=== PATIENT | female | born 1945 | race Caucasian/White ===

== ENCOUNTER → 2016-12-19 | Outpatient (CLI) | payer MEDICARE, OTHER ==
[~2016-12-19] MED LIST: ATIVAN 0.50.5 MG/TAB PO; CHILDREN'S ASPI81 M1 PO; GOOD SENSE ASPI81 M1 PO
== END ==
LOC: RAD 10:02
DX: Z13.820 Encounter for screening for osteoporosis (principal)

== ENCOUNTER 2017-09-15 14:56 | Emergency (ER) | payer MEDICARE, OTHER ==
[2017-09-15] MEDS ORDERED: MAGNESIUM100 M1 PO (15:16)
[2017-09-15] MEDS ORDERED: MULTI-VITAMIN1 EACH PO (15:16)
[2017-09-15 16:09] LABS: BASO # 0.1 (0.02-0.10); EOS # 0.2 (0.04-0.40); EOS % 2.6 % (1.0-5.0); HEMATOCRIT 41.8 % (37.0-47.0); HEMOGLOBIN 13.6 g/dL (12.5-16.0); LYMPH# 1.6 (1.50-4.00); MEAN CELL VOLUME 88 fl (78-100); MEAN CORPUSCULAR HEMOGLOBIN 29 pg (27-31); MEAN CORPUSCULAR HGB CONC 33 g/dL (33-37); MEAN PLATELET VOLUME 10.7 fl (7.4-10.4); MONO # 0.5 (0.20-0.80); NEU # 5.6 (1.40-6.50); PLATELET COUNT 236 K/mm3 (130-400); RED BLOOD COUNT 4.75 M/mm3 (4.10-5.30); RED CELL DISTRIBUTION WIDTH 13.9 % (11.5-14.5); WHITE BLOOD COUNT 8.1 K/mm3 (4.8-10.8)
[2017-09-15 16:15] LABS: ALBUMIN 3.9 g/dL (3.5-5.0); BUN/CREATININE RATIO 24.8 (6.0-26.0); POTASSIUM 3.7 mmol/L (3.6-5.0); TOTAL BILIRUBIN 0.6 mg/dL (0.2-1.3); TOTAL PROTEIN 7.3 g/dL (6.3-8.2)
[2017-09-15] MEDS ORDERED: METOPROLOL SUCC50 M1 PO (16:42)
[2017-09-15 17:05] VITALS: BP 157/79
== END 2017-09-15 16:35 | disposition home or self-care (01) ==
LOC: ED 14:56
PROVIDERS: Family Medicine
DX: I49.3 Ventricular premature depolarization (principal); I10 Essential (primary) hypertension; R00.2 Palpitations; R42 Dizziness and giddiness

== ENCOUNTER → 2019-06-18 | Outpatient (CLI) | payer MEDICARE, OTHER ==
[~2019-06-18] MED LIST changes: +MAGNESIUM100 M1 PO; +METOPROLOL SUCC50 M1 PO; +MULTI-VITAMIN1 EACH PO
== END ==
LOC: RAD 16:44
DX: M47.816 Spondylosis without myelopathy or radiculopathy, lumbar region (principal); M50.820 Other cervical disc disorders, mid-cervical region, unspecified level; M62.830 Muscle spasm of back

== ENCOUNTER 2020-09-11 10:11 | Emergency (ER) | payer MEDICARE, OTHER ==
[~2020-09-11] VITALS: Ht 167.6 cm; Wt 88.6 kg
[2020-09-11 11:10] LABS: EOS # 0.1 (0.04-0.40); EOS % 1.5 % (1.0-5.0); HEMATOCRIT 42.3 % (37.0-47.0); HEMOGLOBIN 13.5 g/dL (12.5-16.0); LYMPH# 1.3 (1.50-4.00); MEAN CELL VOLUME 87 fl (78-100); MEAN CORPUSCULAR HEMOGLOBIN 28 pg (27-31); MEAN CORPUSCULAR HGB CONC 32 g/dL (33-37); MEAN PLATELET VOLUME 10.2 fl (7.4-10.4); MONO # 0.4 (0.20-0.80); NEU # 4.9 (1.40-6.50); PLATELET COUNT 232 K/mm3 (130-400); RED BLOOD COUNT 4.88 M/mm3 (4.10-5.30); WHITE BLOOD COUNT 6.8 K/mm3 (4.8-10.8)
[2020-09-11 11:21] LABS: ALBUMIN 3.8 g/dL (3.4-4.8); POTASSIUM 4.1 mmol/L (3.5-5.1)
[2020-09-11 11:22] LABS: CALCIUM 9.1 mg/dL (8.3-10.5)
[2020-09-11 11:24] LABS: TOTAL PROTEIN 6.3 g/dL (6.2-8.1)
[2020-09-11 11:25] LABS: TOTAL BILIRUBIN 0.6 mg/dL (0.2-1.2)
[2020-09-11] MEDS ORDERED: MECLIZINE PO (13:28)
[2020-09-11 13:50] VITALS: BP 153/80
== END 2020-09-11 13:50 | disposition home or self-care (01) ==
LOC: ED 10:11
PROVIDERS: Family Medicine
DX: H81.10 Benign paroxysmal vertigo, unspecified ear (principal); I10 Essential (primary) hypertension; Z90.710 Acquired absence of both cervix and uterus

== ENCOUNTER → 2021-09-23 | Outpatient (CLI) | payer MEDICARE ==
[~2021-09-23] MED LIST changes: +MECLIZINE PO
== END ==
LOC: RAD 15:34
DX: U07.1 COVID-19 (principal); J20.8 Acute bronchitis due to other specified organisms; J80 Acute respiratory distress syndrome

== ENCOUNTER → 2022-05-05 | Outpatient (CLI) | payer MEDICARE, OTHER ==
[~2022-05-05] MED LIST changes: +ANTIVERT12.5 M1 PO
== END ==
LOC: RAD 10:10
DX: R91.1 Solitary pulmonary nodule (principal); R06.00 Dyspnea, unspecified; Z86.16 Personal history of COVID-19

== ENCOUNTER → 2022-09-05 | Outpatient (CLI) | payer MEDICARE, OTHER ==
[~2022-09-05] MED LIST changes: +SOTALOL HYDROCH80 MG PO
== END ==
LOC: RAD 13:00
DX: R20.2 Paresthesia of skin (principal); R00.2 Palpitations; R00.0 Tachycardia, unspecified

== ENCOUNTER → 2022-10-23 | Outpatient (CLI) | payer MEDICARE | LOC: RAD 14:18 | DX: M47.812 Spondylosis without myelopathy or radiculopathy, cervical region (principal); M43.6 Torticollis ==